=== PATIENT | female | born 1970 | race Caucasian/White ===

== ENCOUNTER → 2024-04-14 07:57 | Outpatient (REF) | payer BC, SELFPAY | LOC: RAD 07:57 | PROVIDERS: ATTENDING PHYSICIAN Internal Medicine Gastroenterology | DX: R10.13 Epigastric pain (principal) | CPT/HCPCS: 78227; A9537; J2805 ==

== ENCOUNTER → 2024-04-19 10:25 | Outpatient (REF) | payer BC, SELFPAY | LOC: WDC 10:25 | PROVIDERS: ATTENDING PHYSICIAN Obstetrics & Gynecology; FAMILY PHYSICIAN Nurse Practitioner | DX: R92.2 Inconclusive mammogram (principal) | CPT/HCPCS: 76641 ==

== ENCOUNTER → 2024-08-22 18:41 | Outpatient (REF) | payer BC, SELFPAY | LOC: WDC 18:41 | PROVIDERS: ATTENDING PHYSICIAN Obstetrics & Gynecology; FAMILY PHYSICIAN Nurse Practitioner | DX: Z12.31 Encounter for screening mammogram for malignant neoplasm of breast (principal) | CPT/HCPCS: 77063; 77067 ==

== ENCOUNTER 2025-01-18 02:35 | Emergency (ER) | payer BC, SELFPAY ==
[2025-01-18] VITALS (7 sets, daily range): BP systolic 125–154; BP diastolic 76–93; BMI 20.1
[2025-01-18 02:59] LABS: % Basophils 0.7 % (0-2); % Eosinophils 0.2 % (0-6); % Immature Granulocytes 0.2 % (0-0.5); % Lymphocytes 28.8 % (20.5-51.1); % Monocytes 7.6 % (1.7-9.3); % Neutrophils 62.5 % (42.2-75.2); Absolute Lymphocytes 1.7 10^3/uL (1.2-3.4); Absolute Monocytes 0.5 10^3/uL (0.1-0.6); Absolute Neutrophils 3.7 10^3/uL (1.4-6.5); Hematocrit 37.2 % (37.0-47.0); Hemoglobin 12.3 g/dL (12.0-16.0); Mean Corp Hgb Conc. 33.1 g/dL (33.0-37.0); Mean Corpuscular Hgb 30.9 pg (27.0-31.0); Mean Corpuscular Volume 93.5 fL (81.0-99.0); Mean Platelet Volume 10.9 fL (7.4-10.4); Nucleated Red Blood Cells % 0 %; Platelet Count 175 10^3/uL (130-400); Red Blood Cell Count 3.98 10^6/uL (4.20-5.40); Red Cell Dist. Width 12.5 % (11.5-14.5); White Blood Cell Count 5.9 10^3/uL (4.8-10.8)
--- NOTE | 2025-01-18 03:18 | ED.GENMED ---
History of Present Illness
<Fauzia Hogue PA-C - Last Filed: 01/18/25 09:30>
General
Chief Complaint: Chest Pain
Source: patient
Exam Limitations: none
Time Seen by Provider: 01/18/25 03:18
Nursing documentation reviewed up to this point in time: agreed with
History of Present Illness
History of Present Illness:
This is a 54-year-old female with past medical history of SVT presents emergency department today with concerns of left-sided chest pain and upper back pain. This started around 10 PM today after she was leaving work. She reports that she also
noted some epigastric pain but that has gone away. Patient reports that the pain has been constant in her chest. She has no history of coronary artery disease. She currently follows with Dr. Maojr at [place] for her SVT. She denies any shortness of
breath with this but states that sometimes when she takes a deep breath, she will notice the pain more. She denies any swelling in her lower extremities. She denies any recent long distance travel. She denies any hormonal supplementation. She
denies any family history of early cardiac disease. She has any radiation of the pain into the jaw or down the left arm. She reports that the pain is not related to eating, she denies any history of GERD. She denies any heavy lifting recently or
injury to the chest wall. She called EMS, en route she was given aspirin and nitro which did not help her symptoms.
Past History
<Fauzia Hogue PA-C - Last Filed: 01/18/25 09:30>
Past History
ED Past Medical History: Psychiatric
ED Past Surgical History: Other (Lasik, rhinoplasty)
Social History
Tobacco: Non-smoker
Alcohol: Occasional
Drug: None
Personal:
Living: with family
Employment: Employed
Family History
Family History: CAD
Review of Systems
<Fauzia Hogue PA-C - Last Filed: 01/18/25 09:30>
Review of Systems
All Other Systems: ROS reviewed and negative except as documented in HPI and ROS
Phy Exam
<Fauzia Hogue PA-C - Last Filed: 01/18/25 09:30>
Physical Exam
Physical Exam:
General: Patient is well appearing and in no acute distress; non-toxic
Skin: Warm and dry, no rashes or lesions
Head: Normocephalic, atraumatic
Eyes: Sclera non-icteric. EOMs intact.
Cardiac: Regular rate and rhythm, no murmurs, no tenderness to palpation of the external chest wall
Peripheral Vascular: No lower extremity swelling or edema
Pulm: Normal respiratory effort, no wheezes, rales, or rhonchi
Abdomen: No abdominal tenderness to palpation no epigastric tenderness
Neuro: CN II-XII intact, no focal neurologic deficits.
Psychiatric: Appropriate mood and affect.
Scores
<Fauzia Hogue PA-C - Last Filed: 01/18/25 09:30>
Heart Score for Chest Pain Patients
STEMI patient?: No
History: Slightly or Non-Suspicious
ECG: Normal
Age: >45 - <65 years
Risk Factors: No Risk Factors
Troponin: </= Normal Limit
Heart Score for Chest Pain Patients: 1
Heart Score Risk: 2.5% MACE over next 6 weeks
<Nasima Mcdaniel PA-C - Last Filed: 01/18/25 09:56>
Heart Score for Chest Pain Patients
Heart Score for Chest Pain Patients: 1
Heart Score Risk: 2.5% MACE over next 6 weeks
Course
<Fauzia Hogue PA-C - Last Filed: 01/18/25 09:30>
Orders/Labs/Results
Orders:
Orders
01/18/25 02:36
Electrocardiogram (*1) Urgent
Reason for Study: Chest Pain
01/18/25 02:37
EKG- Treatment ONCE
01/18/25 02:52
Complete Blood Count/With Diff Urgent
Comprehensive Metabolic Panel Urgent
Lipase Urgent
Comment: ADD ON
Troponin I Urgent
01/18/25 03:31
Add On- LAB Urgent
Tests Added?: lipase
CR Chest - 2 Views Urgent
Comment:
Reason For Exam: left sided chest pain
01/18/25 04:11
D-Dimer Urgent
01/18/25 05:27
CT Chest PE Study Urgent
Comment:
Reason For Exam: chest pain
01/18/25 05:34
Electrocardiogram (*1) Urgent
Reason for Study: Chest Pain
01/18/25 05:39
Troponin I Urgent
01/18/25 06:22
Diphenhydramine [Benadryl] 50 mg IV NOW STA
Hydrocortisone Sod Succinate [Solu-Cortef] 200 mg IV NOW STA
Abnormal Lab Results
01/18/25 01/18/25
02:52 04:11
RBC 3.98 L 10^6/uL
(4.20-5.40)
MPV 10.9 H fL
(7.4-10.4)
D-Dimer 1.87 H ug/mlFEU
(0.00-0.50)
Carbon Dioxide 32 H mmol/L
(22-30)
Glucose 107 H mg/dl
(70-99)
01/18/25 02:52
01/18/25 02:52
Vital Signs
Initial and Last Documented VS:
Initial Vital Signs
Temp Pulse Resp BP Pulse Ox
36.9 C 77 16 125/90 100
01/18/25 02:44 01/18/25 02:44 01/18/25 02:44 01/18/25 02:44 01/18/25 02:44
Last Documented Vital Signs
Temp Pulse Resp BP Pulse Ox
37.2 C 84 12 154/89 93
01/18/25 09:12 01/18/25 09:12 01/18/25 09:12 01/18/25 09:12 01/18/25 09:12
<Rafa Lawson, DO - Last Filed: 01/18/25 07:22>
Orders/Labs/Results
Orders:
Orders
01/18/25 02:36
Electrocardiogram (*1) Urgent
Reason for Study: Chest Pain
01/18/25 02:37
EKG- Treatment ONCE
01/18/25 02:52
Complete Blood Count/With Diff Urgent
Comprehensive Metabolic Panel Urgent
Lipase Urgent
Comment: ADD ON
Troponin I Urgent
01/18/25 03:31
Add On- LAB Urgent
Tests Added?: lipase
CR Chest - 2 Views Urgent
Comment:
Reason For Exam: left sided chest pain
01/18/25 04:11
D-Dimer Urgent
01/18/25 05:27
CT Chest PE Study Urgent
Comment:
Reason For Exam: chest pain
01/18/25 05:34
Electrocardiogram (*1) Urgent
Reason for Study: Chest Pain
01/18/25 05:39
Troponin I Urgent
01/18/25 06:22
Diphenhydramine [Benadryl] 50 mg IV NOW STA
Hydrocortisone Sod Succinate [Solu-Cortef] 200 mg IV NOW STA
Abnormal Lab Results
01/18/25 01/18/25
02:52 04:11
RBC 3.98 L 10^6/uL
(4.20-5.40)
MPV 10.9 H fL
(7.4-10.4)
D-Dimer 1.87 H ug/mlFEU
(0.00-0.50)
Carbon Dioxide 32 H mmol/L
(22-30)
Glucose 107 H mg/dl
(70-99)
01/18/25 02:52
01/18/25 02:52
Vital Signs
Initial and Last Documented VS:
Initial Vital Signs
Temp Pulse Resp BP Pulse Ox
36.9 C 77 16 125/90 100
01/18/25 02:44 01/18/25 02:44 01/18/25 02:44 01/18/25 02:44 01/18/25 02:44
Last Documented Vital Signs
Temp Pulse Resp BP Pulse Ox
37.2 C 84 12 154/89 93
01/18/25 09:12 01/18/25 09:12 01/18/25 09:12 01/18/25 09:12 01/18/25 09:12
<Nasima Mcdaniel PA-C - Last Filed: 01/18/25 09:56>
Orders/Labs/Results
Orders:
Orders
01/18/25 02:36
Electrocardiogram (*1) Urgent
Reason for Study: Chest Pain
01/18/25 02:37
EKG- Treatment ONCE
01/18/25 02:52
Complete Blood Count/With Diff Urgent
Comprehensive Metabolic Panel Urgent
Lipase Urgent
Comment: ADD ON
Troponin I Urgent
01/18/25 03:31
Add On- LAB Urgent
Tests Added?: lipase
CR Chest - 2 Views Urgent
Comment:
Reason For Exam: left sided chest pain
01/18/25 04:11
D-Dimer Urgent
01/18/25 05:27
CT Chest PE Study Urgent
Comment:
Reason For Exam: chest pain
01/18/25 05:34
Electrocardiogram (*1) Urgent
Reason for Study: Chest Pain
01/18/25 05:39
Troponin I Urgent
01/18/25 06:22
Diphenhydramine [Benadryl] 50 mg IV NOW STA
Hydrocortisone Sod Succinate [Solu-Cortef] 200 mg IV NOW STA
Abnormal Lab Results
01/18/25 01/18/25
02:52 04:11
RBC 3.98 L 10^6/uL
(4.20-5.40)
MPV 10.9 H fL
(7.4-10.4)
D-Dimer 1.87 H ug/mlFEU
(0.00-0.50)
Carbon Dioxide 32 H mmol/L
(22-30)
Glucose 107 H mg/dl
(70-99)
01/18/25 02:52
01/18/25 02:52
Vital Signs
Initial and Last Documented VS:
Initial Vital Signs
Temp Pulse Resp BP Pulse Ox
36.9 C 77 16 125/90 100
01/18/25 02:44 01/18/25 02:44 01/18/25 02:44 01/18/25 02:44 01/18/25 02:44
Last Documented Vital Signs
Temp Pulse Resp BP Pulse Ox
37.2 C 84 12 154/89 93
01/18/25 09:12 01/18/25 09:12 01/18/25 09:12 01/18/25 09:12 01/18/25 09:12
Jennilt;Fauzia Hogue PA-C - Last Filed: 01/18/25 09:30>
MDM/Problems Addressed
Differential Diagnosis Includes:
Differentials include ACS, pulmonary embolism, costochondritis, GERD, pneumothorax
MDM/Problems Addressed:
54-year-old female with past medical history of SVT presents emerged from today with concerns of left-sided chest pain. Her EKG shows normal sinus rhythm with a incomplete right bundle branch block. Incomplete RBBB is not new. Her troponin is
undetectable x 2. Her D-dimer is elevated. Will send for CT angiography. Case signed out to Roya LARRY pending CT scan report.
<Fauzia Hogue PA-C - Last Filed: 01/18/25 09:30>
*Critical Care Note
Total Time (30-74mins, 75-104mins- exclusive of procedures): Not Applicable
<Fauzia Hogue PA-C - Last Filed: 01/18/25 09:30>
Update Note
Update Note:
Update patient's pain is starting to improve without intervention; d-dimer elevated.
<Nasima Mcdaniel PA-C - Last Filed: 01/18/25 09:56>
Update Note
Update Note:
Update patient's pain is starting to improve without intervention; d-dimer elevated.
0800 - assumed care of patient pending CT scan for chest pain and elevated d dimer
had 2 neg trops
plan is to d/c home if CT neg.
01/18/2025 0904 AM
Patient reassessed, no longer having pain. Her blood pressure is 150/80. She has no history of hypertension. Patient seems quite anxious about having a recurrence of this pain and blood pressure issue. But she is reassured by 2 negative
troponins, 2 unchanged EKGs and a CT PE study that was essentially negative, there is maybe some scarring which she was informed about in her lungs. Patient's lipase normal. She is on Macrobid day 3 for UTI which she got tested for urgent care
several days ago. She is not having any lower back pain or flank pain to suggest obstructive uropathy.
Most likely musculoskeletal pain versus stress or anxiety. Also patient was informed to watch out for shingles rash. Follow-up with her own telephone installer regarding her blood pressure and this chest pain. Return precautions.
ED Attending Note
<Fauzia Hogue PA-C - Last Filed: 01/18/25 09:30>
-
Portions of this chart may have been created with voice recognition software.� Occasional wrong word or��sound alike� substitutions may have occurred due to the inherent limitations of voice recognition software.
<Rafa Lawson DO - Last Filed: 01/18/25 07:22>
ED Attending Note
Patient seen and examined by attending physician: Yes
ED Attending Note:
Pleasant 54-year-old female presents emergency department left-sided chest pain that began around 10 PM last evening. Patient does have a history of SVT. Patient took 4 baby aspirin and called 911. Patient received 1 nitro sublingual
prehospital. Patient was seen in conjunction with the [facility]. I have reviewed and agree with her history and treatment plan. Patient's D-dimer is elevated CT PE study ordered. Patient did have a reaction to the IV dye so we are pretreating her.
Patient is awake alert oriented x 3, minimal acute distress heart is regular rate rhythm skin is warm and dry patient moves all 4 extremities patient is conversing normally.
Discharge Plan
Departure
Patient Disposition: Home (Routine Discharge)
Date of Disposition: 01/18/25
Time of Disposition: 08:47
Patient with high blood pressure during this ER visit?: Yes
Condition: Good
Discharge Problem:
Chest pain
Instructions: BLOOD PRESSURE, Chest Pain
Prescriptions:
No Action
clonazepam 0.25 MG tablet
0.25 mg PO DAILY
famotidine [Pepcid AC] 20 MG tablet
20 mg PO BID
Referrals:
Munira Mendieta CRNP [Family Provider] -
Activity Restrictions/Additional Instructions:
Please call your telephone installer to schedule a follow up appointment.
PLEASE RETURN SHOULD YOU DEVELOP AN ACUTE WORSENING OF YOUR SYMPTOMS, SHORTNESS OF BREATH, LIGHTHEADEDNESS, DIZZINESS, OR ANY OTHER SIGNS OR SYMPTOMS WORRISOME TO YOU.
Interventions
Interventions:
*Risk Screen - Suicide Last Done: 01/18/25 02:47
*General Assessment Last Done: 01/18/25 02:47
*Neglect/Abuse Screening Last Done: 01/18/25 02:47
*ED COVID-19 Vaccine History Last Done: 01/18/25 02:47
*Nursing Disposition Last Done: 01/18/25 09:12
ED- Cardiac Assessment Last Done: 01/18/25 03:06
Discharge Date and Time
Discharge Date/Time: 01/18/25 09:13
Print Language: TAJIK
[2025-01-18 03:19] LABS: ALT (SGPT) 22 U/L (0-35); AST (SGOT) 24 U/L (14-36); Albumin 4.8 g/dl (3.5-5.0); Alkaline Phosphatase 64 U/L (38-126); Blood Urea Nitrogen 12 mg/dl (7-17); Calcium 10.2 mg/dl (8.4-10.2); Carbon Dioxide 32 mmol/L (22-30); Chloride 106 mmol/L (98-107); Estimated Creatinine Clearance 100 ml/min; Glucose 107 mg/dl (70-99); Sodium 145 mmol/L (135-145); Total Bilirubin 0.4 mg/dl (0.2-1.3); Total Protein 8.1 g/dl (6.3-8.2); eGFR > 60.00
[2025-01-18 03:22] LABS: Troponin I < 0.012 ng/ml
[2025-01-18 03:46] LABS: Lipase 183 U/L (23-300)
[2025-01-18 04:45] LABS: D-Dimer 1.87 ug/mlFEU (0.00-0.50)
[2025-01-18 06:11] LABS: Troponin I < 0.012 ng/ml
[2025-01-18] MEDS: SOLU-CORTEF 200 MG IV (06:27)
[2025-01-18] MEDS: BENADRYL 50 MG IV (06:27)
== END 2025-01-18 09:13 | disposition home or self-care (01) ==
LOC: EMR 02:35
PROVIDERS: Physician Assistant; EMERGENCY PHYSICIAN Student in an Organized Health Care Education/Training Program; FAMILY PHYSICIAN Nurse Practitioner
DX: R07.89 Other chest pain (principal); M54.6 Pain in thoracic spine; R03.0 Elevated blood-pressure reading, without diagnosis of hypertension; I47.10 Supraventricular tachycardia, unspecified; I45.10 Unspecified right bundle-branch block; R79.89 Other specified abnormal findings of blood chemistry; Z87.440 Personal history of urinary (tract) infections; Z88.1 Allergy status to other antibiotic agents; Z88.8 Allergy status to other drugs, medicaments and biological substances
CPT/HCPCS: 99285; 96374; 96375; 71046; 71275; 80053; 83690; 84484; 85025; 85379; 93005; Q9967

== ENCOUNTER → 2025-03-31 12:31 | Outpatient (REF) | payer BC, SELFPAY | LOC: WDC 12:31 | PROVIDERS: ATTENDING PHYSICIAN Obstetrics & Gynecology; FAMILY PHYSICIAN Nurse Practitioner | DX: R92.333 Mammographic heterogeneous density, bilateral breasts (principal) | CPT/HCPCS: 76641 ==

== ENCOUNTER → 2025-08-25 12:05 | Outpatient (REF) | payer BC, SELFPAY | LOC: WDC 12:05 | PROVIDERS: ATTENDING PHYSICIAN Nurse Practitioner | DX: Z12.31 Encounter for screening mammogram for malignant neoplasm of breast (principal) | CPT/HCPCS: 77063; 77067 ==